=== PATIENT | male | born 1975 | race Hispanic/Latino ===

== ENCOUNTER → 2018-01-18 | Day surgery (SDC) | payer OTHER ==
[~2018-01-18] MED LIST: AVAPRO150 MG PO; CREATINE; FENTANYL CITRATE/PF 100MCG/2 ML INJ ONE; HYOSCYAMINE SULFATE 0.5 MG/ML AMP ONE; LIDOCAINE HCL 2% LOCAL INJ 5 ML SDV VIAL INJ ONE; MIDAZOLAM HCL 5 MG/ML VIAL ONE; PANTOPRAZOLE SO40 MG PO; PRE WORKOUT; PROPOFOL IV EMULSION 10 MG/ML 50 ML VIAL ONE; SYNTHROID175 MCG PO; TRILIPIX135 MG PO; [UNRECOGNIZED DRUG - OTHER]
[2018-01-18 10:58] LABS: WBC,FECAL (FECAL LACTOFERRIN) POSITIVE (NEGATIVE)
[2018-01-18 11:38] LABS: ALBUMIN 4.1 g/dL (3.5-5.0); ALBUMIN/GLOBULIN RATIO 1.1 (0.8-2.0); CALCIUM 9.9 mg/dL (8.4-10.2); CREATININE, SERUM 2.21 mg/dL (0.72-1.25)
--- NOTE | 2018-01-18 11:41 | Operative Report ---
DATE OF PROCEDURE: January 18, 2018 REFERRING PHYSICIAN: Dr. Kush Spencer. PROCEDURES PERFORMED: Esophagogastroduodenoscopy with biopsies and colonoscopy with polypectomy and biopsies. INDICATIONS FOR EGD: Acid reflux. INDICATIONS FOR COLONOSCOPY: Bright red blood per rectum and diarrhea, intermittent. MEDICATIONS: Patient was done under MAC. Please see anesthesiologist's note. PROCEDURE IN DETAIL: With the patient in left lateral decubitus position, flexible fiberoptic Olympus gastroscope was introduced into the esophagus under direct visualization without any difficulty. There was some patchy erythema noted in the distal esophagus. Also, there were some prominent subepithelial veins noted versus grade 1 esophageal varices. The scope was then advanced with ease into the stomach. Mucosa overlying the antrum and the body revealed some patchy erythema and [id number] edema and biopsies were obtained and sent to stain for H. pylori. The pylorus was of normal contour and shape, was intubated with ease, and the scope was advanced all the way to the second portion of the duodenum. Biopsies were obtained from the proximal second portion to rule out sprue. Mucosa overlying the duodenal bulb appeared to be within normal limits. The scope was then withdrawn back into the stomach and retroflexed and the mucosa overlying the fundus and the cardia appeared to be within normal limits. The scope was then straightened out. The stomach was decompressed. The scope was subsequently withdrawn. Patient tolerated the procedure well. IMPRESSION 1. Distal esophagitis. 2. Prominence of subepithelial veins versus grade 1 esophageal varices. 3. Gastritis biopsied, biopsies sent to stain for H. pylori. 4. Rule out sprue. PLAN: Follow up histology. Initiate Protonix 40 mg 1 p.o. q.a.m. a.c.. Check liver enzymes and an ultrasound of the liver. Patient was then turned around. After adequate lubrication of the anal canal, a flexible fiberoptic Olympus colonoscope was inserted into the rectum with ease and advanced all the way to the cecum. Mucosa overlying the cecum appeared to be within normal limits. The ileocecal valve was intubated and scope was advanced into the terminal ileum. Biopsies were obtained. The scope was then withdrawn back into the colon. It was then withdrawn slowly. One polyp was snared from the ascending colon. The mucosa overlying the transverse colon appeared to be within normal limits. Two polyps was snared, 3 polyps were hot biopsied from the descending colon. Polypectomy site was hemoclipped x2. There was some patchy erythema and moderate edema noted in the sigmoid colon and biopsies were obtained. One polyp was hot biopsied from the sigmoid. Two polyps were hot biopsied from the rectum. The scope was then retroflexed into the distal rectum and small internal hemorrhoids were noted, none of which is actively bleeding. The scope was then straightened out. The rectosigmoid area as well as the distal rectal area were decompressed. The scope was subsequently withdrawn after securing an adequate stool specimen that was sent for the appropriate stool studies. Patient tolerated the procedure well. IMPRESSION 1. Ascending colon polyp, snared x1. 2. Descending colon polyps x5, 2 snared, polypectomy site hemoclipped x2 and 3 hot biopsied . DICTATION ENDS ABRUPTLY Job#: [id number] SUNIL
--- NOTE | 2018-01-18 12:56 | Operative Report ---
DATE OF PROCEDURE: January 18, 2018 ADDENDUM IMPRESSION 1. Ascending colon polyp snared x1. 2. Descending colon polyps x5, 2 snared, polypectomy site hemoclipped and 3 removed per hot biopsy forceps. 3. Mild patchy segmental colitis sigmoid colon, biopsies obtained. 4. Sigmoid colon polyp, hot biopsied. 5. Rectal polyps x2, hot biopsied. 6. Internal hemorrhoids, none actively bleeding. PLAN: Follow up histology. Follow up stool studies. Initiate VSL#3 DS 1 p.o. b.i.d. and Bentyl 10 mg 1 p.o. t.i.d. Timing of followup colonoscopy pending pathology report. Job#: [id number] JOSE cc:Kush Spencer MD
[2018-01-18 14:51] LABS: C DIFFICILE TOXIN A&B AMP PROB NEGATIVE (NEGATIVE)
== END | disposition home or self-care (01) ==
LOC: OR 07:25
PROVIDERS: ATTEND Internal Medicine Gastroenterology
PROC: 0DBM8ZZ Excision of Descending Colon, Via Natural or Artificial Opening Endoscopic (ICD-10-PCS; 2018-01-18)
PROC: 0D5M8ZZ Destruction of Descending Colon, Via Natural or Artificial Opening Endoscopic (ICD-10-PCS; 2018-01-18)
PROC: 0D5N8ZZ Destruction of Sigmoid Colon, Via Natural or Artificial Opening Endoscopic (ICD-10-PCS; 2018-01-18)
PROC: 0D5P8ZZ Destruction of Rectum, Via Natural or Artificial Opening Endoscopic (ICD-10-PCS; 2018-01-18)
PROC: 0DBN8ZZ Excision of Sigmoid Colon, Via Natural or Artificial Opening Endoscopic (ICD-10-PCS; 2018-01-18)
PROC: 0DB98ZZ Excision of Duodenum, Via Natural or Artificial Opening Endoscopic (ICD-10-PCS; principal; 2018-01-18 09:00)
PROC: 0DB68ZZ Excision of Stomach, Via Natural or Artificial Opening Endoscopic (ICD-10-PCS; 2018-01-18 09:00)
PROC: 0DBK8ZZ Excision of Ascending Colon, Via Natural or Artificial Opening Endoscopic (ICD-10-PCS; 2018-01-18 09:00)
DX: K50.10 Crohn's disease of large intestine without complications (principal); K63.5 Polyp of colon; K62.1 Rectal polyp; K29.50 Unspecified chronic gastritis without bleeding; K21.9 Gastro-esophageal reflux disease without esophagitis; K59.00 Constipation, unspecified; A04.8 Other specified bacterial intestinal infections; K20.9 Esophagitis, unspecified; K64.8 Other hemorrhoids; I10 Essential (primary) hypertension; E78.1 Pure hyperglyceridemia; E03.9 Hypothyroidism, unspecified; Z72.0 Tobacco use; Z01.810 Encounter for preprocedural cardiovascular examination; Z68.28 Body mass index [BMI] 28.0-28.9, adult
CPT/HCPCS: 36415; 43239; 45380; 45384; 45385; 80053; 83630; 83993; 87045; 87177; 87328; 87493; 93005; J1980; J2001; J2250

== ENCOUNTER → 2018-01-27 | Outpatient (CLI) | payer OTHER ==
[~2018-01-27] MED LIST changes: -FENTANYL CITRATE/PF 100MCG/2 ML INJ ONE; -HYOSCYAMINE SULFATE 0.5 MG/ML AMP ONE; -LIDOCAINE HCL 2% LOCAL INJ 5 ML SDV VIAL INJ ONE; -MIDAZOLAM HCL 5 MG/ML VIAL ONE; -PROPOFOL IV EMULSION 10 MG/ML 50 ML VIAL ONE
--- NOTE | 2018-01-27 11:04 | Diagnostic Imaging Report ---
PROCEDURE:LIVER ULTRASOUND COMPARISON:None. INDICATIONS:ELEVATED LIVER ENZYMES FINDINGS: Liver: 16.2 cm. Normal hepatic parenchymal echogenicity. No focal mass. Main portal vein: 1.1 cm. Hepatopedal flow. Gallbladder: No echogenic calculi, gallbladder wall thickening, or pericholecystic fluid. Common Bile Duct: 3.0 mm. No echogenic filling defect. Sonographic Lucero's sign: Negative. Right kidney: 13.7 cm. No solid or cystic mass, echogenic calculi, or hydronephrosis. Normal parenchymal echogenicity. Pancreas: The visualized portions of the pancreas are normal. Inferior vena cava: Normal. Aorta: Normal. Ascites: None. CONCLUSION: No acute sonographic abnormality. Dictated by: Gui Wilks M.D. on 01/27/2018 at 11:05 Electronically approved by: Gui Wilks M.D. on 01/27/2018 at 11:05
== END ==
LOC: US 09:14
PROVIDERS: ATTEND Internal Medicine Gastroenterology
DX: K62.5 Hemorrhage of anus and rectum (principal); K59.00 Constipation, unspecified; K21.9 Gastro-esophageal reflux disease without esophagitis
CPT/HCPCS: 76705